=== PATIENT | male | born 1940 | race Caucasian/White ===

== ENCOUNTER 2022-07-15 19:54 | Emergency (ER) | payer OTHER, MEDICARE ==
[2022-07-15 20:16] VITALS: BP 141/82; PULSE 73; RESP 20; TEMP 98.3; BMI 23.7
[2022-07-15] MEDS ORDERED: CIPROFLOXACIN 500 MG TABLET (RESTRICTED TO ID) PO ONE (20:25)
[2022-07-15] MEDS ORDERED: CIPROFLOXACIN 250 MG TABLET (RESTRICTED TO ID) PO ONE (20:35)
== END 2022-07-15 20:40 | disposition home or self-care (01) ==
LOC: FER 19:54
DX: N30.01 Acute cystitis with hematuria (principal)
CPT/HCPCS: 81003; 81015; 87086; 87186; 99283-25